=== PATIENT | female | born 1950 | race Two or more races ===

== ENCOUNTER 2022-08-14 16:40 | Emergency (ER) | payer OTHER ==
[~2022-08-14] VITALS: Ht 167.6 cm; Wt 72.6 kg
[2022-08-14] MEDS ORDERED: NAPROXEN500 MG PO (19:16)
== END 2022-08-14 20:21 | disposition home or self-care (01) ==
LOC: ER 16:40
DX: M25.562 Pain in left knee (principal); Z91.013 Allergy to seafood

== ENCOUNTER 2022-09-07 19:16 | Inpatient (IN) | payer OTHER ==
[~2022-09-07] VITALS: Ht 167.6 cm; Wt 72.6 kg
[~2022-09-07 19:16] MED LIST: NAPROXEN500 MG PO
--- NOTE | 2022-09-07 19:29 | NUR ---
PACIENTE ALERTA Y ORIENTADA EN DANIEL NIYA ESFERAS, REFIERE QUE DESDE HACE 11 VIZCARRA TIENE TOS, CONGESTION, DOLOR DE SHYANNE, ESCALOFRIOS Y DOLOR MUSCULAR. MENCIONA A REICBIDO TRATAMIENTO DIMITRI NO SIENTE MEJORIA. SE MONITOENA VS Y SE UBICA EN MARIE DE ESPERA
--- NOTE | 2022-09-07 22:22 | NUR ---
PTE EVALAUDO POR DR. RODRIGUEZ DE EJECUTA ORDEN Y SE ENRIQUETA MUESTRA BAJO MEDIDAS ASEPTICAS Y SE ADM MEDICAMENTOS GLUTEO DERECHO, PTE REFIERE ENTENDER TODO LO REALIZADO.
--- NOTE | 2022-09-08 01:41 | NUR ---
SE RECIBE PTE DEL TURNO ANTERIOR, ALERTA Y ORIENTADA EN DANIEL NIYA ESFERAS, UBICA EN AREA DEL PASILLO, EN COMPANIA DE FAMILIAR. SE UBICA EN AREA DE RADHA POR MR Todd BENZ, CON BARANDA ELEVADA POR PREUCION. SE OBSERVA CON BUEN PATRON RESPIRATORIO Y PIEL TIBIA AL TACTO. IV PATENTE Y GABRIEL DE EDEMA O ERITEMA RECIBIENDO 0.9% NSS @125ML/HR. TERAPIAS RESPIRATORIAS NOTIFICADAS A PERSONAL DE TURNO MS HARRIS. PENDIENTE A REALIZAR CBC A LAS 6:00AM. SE MANTIENE BAJO OBSERVACION.
[2022-09-08] MEDS ORDERED: GABAPENTIN300 M2 (14:52)
[2022-09-08] MEDS ORDERED: MELOXICAM15 MG (14:52)
== END 2022-09-22 11:22 | disposition designated cancer center or children's hospital (05) | DRG 871 ==
LOC: ER 19:16 → MEDJ 09-08 10:47 → SEC-K 09-08 10:47 → MEDJ 09-09 14:08
PROVIDERS: ADMIT Internal Medicine; ATTEND Internal Medicine
PROC: BW24ZZZ Computerized Tomography (CT Scan) of Chest and Abdomen (ICD-10-PCS; 2022-09-08)
PROC: BW21ZZZ Computerized Tomography (CT Scan) of Abdomen and Pelvis (ICD-10-PCS; 2022-09-08)
PROC: BW28ZZZ Computerized Tomography (CT Scan) of Head (ICD-10-PCS; 2022-09-08)
PROC: BW40ZZZ Ultrasonography of Abdomen (ICD-10-PCS; 2022-09-08)
PROC: BW24YZZ Computerized Tomography (CT Scan) of Chest and Abdomen using Other Contrast (ICD-10-PCS; 2022-09-09)
PROC: BW21YZZ Computerized Tomography (CT Scan) of Abdomen and Pelvis using Other Contrast (ICD-10-PCS; 2022-09-09)
PROC: 0W9930Z Drainage of Right Pleural Cavity with Drainage Device, Percutaneous Approach (ICD-10-PCS; principal; 2022-09-11)
PROC: BW24YZZ Computerized Tomography (CT Scan) of Chest and Abdomen using Other Contrast (ICD-10-PCS; 2022-09-15)
PROC: 4A12X4Z Monitoring of Cardiac Electrical Activity, External Approach (ICD-10-PCS; 2022-09-15)
DX: A41.1 Sepsis due to other specified staphylococcus (principal); J15.29 Pneumonia due to other staphylococcus; J86.9 Pyothorax without fistula; J91.8 Pleural effusion in other conditions classified elsewhere; I31.39 Other pericardial effusion (noninflammatory); R04.2 Hemoptysis; J90 Pleural effusion, not elsewhere classified; J98.11 Atelectasis; D72.829 Elevated white blood cell count, unspecified; Z87.891 Personal history of nicotine dependence